=== PATIENT | female | born 1925 | race Caucasian/White ===

== ENCOUNTER 2017-04-27 10:00 | Day surgery (SDC) | payer MEDICARE, OTHER ==
[~2017-04-27 10:00] MED LIST: ACETAMINOPHEN PO; ASPIRIN 81MG TA81 MG PO; ASPIRIN81 MG PO; CALCIUM + D 6001 TAB PO; CENTRUM SILVER1 TA1 PO; CENTRUM SILVER1 TAB PO; CITALOPRAM HYDR10 MG PO; DIOVAN80 MG PO; ECOTRIN325 MG PO; GEMFIBROZIL600 MG PO; HYDROCODONE BIT PO; IMDUR 30MG. TAB30 MG PO; LASIX40 MG PO; LEXAPRO 10 MG T10 MG PO; LIPITOR10 MG PO; METOPROLOL SUCC25 M1 PO; METOPROLOL25 MG PO; MIRALAX(PO17 GM/1 PA PO; PHARMASSURE FIS1 SGL PO; PLAVIX75 MG PO; SENNA8.6 MG PO; TRAMADOL PO
[2017-04-27 12:14] VITALS: BP 124/57
== END 2017-04-27 11:30 | disposition home or self-care (01) ==
LOC: SDC 10:00
PROVIDERS: Ophthalmology
PROC: 08RJ3JZ Replacement of Right Lens with Synthetic Substitute, Percutaneous Approach (ICD-10-PCS; principal; 2017-04-27 12:30)
DX: H26.9 Unspecified cataract (principal)
CPT/HCPCS: V2632